=== PATIENT | female | born 1990 | race Caucasian/White ===

== ENCOUNTER 2021-09-04 15:59 | Emergency (ER) | payer OTHER ==
[2021-09-04 16:07] VITALS: BP 132/89; PULSE 105; TEMP 97.9; BMI 25.2
[2021-09-04 18:17] LABS: HCG,QUALITATIVE URINE Negative
[2021-09-04 18:18] LABS: EPI CELLS 17 /uL (0-25.1); HYALINE CASTS 0 /uL (0-3.1); PH,URINE 5.5 (5.0-8.0); URINE APPEARANCE CLEAR; URINE BACTERIA 229 /uL (0-1359); URINE BILIRUBIN NEGATIVE (NEGATIVE); URINE COLOR YELLOW; URINE GLUCOSE (UA) NEGATIVE (NEGATIVE); URINE KETONE NEGATIVE (NEGATIVE); URINE LEUK ESTERASE TRACE (NEGATIVE); URINE NITRITE NEGATIVE (NEGATIVE); URINE PROTEIN NEGATIVE (NEGATIVE); URINE RBC 21 /uL (0-23.9); URINE UROBILINOGEN 0.2 mg/dL (0.2-1.0); URINE WBC 12 /uL (0-25.8)
[2021-09-04] MEDS ORDERED: ONDANSETRON 4 MG TABLET PO ONE (19:58)
[2021-09-04] MEDS ORDERED: ACETAMINOPHEN 500 MG TABLET (FP) PO ONE (20:06)
[2021-09-04] MEDS ORDERED: ONDANSETRON *ODT* 4 MG TABLET ONE (20:55)
[2021-09-04] MEDS ORDERED: ACETAMINOPHEN 325 MG TABLET (FP) ONE (20:55)
== END 2021-09-04 21:08 | disposition home or self-care (01) ==
LOC: JER 15:59 → JERFT 15:59
DX: S09.90XA Unspecified injury of head, initial encounter (principal); M54.2 Cervicalgia; F07.81 Postconcussional syndrome; W01.0XXA Fall on same level from slipping, tripping and stumbling without subsequent striking against object, initial encounter
CPT/HCPCS: 70450-TC; 72125-TC; 81003; 84703; 99285-25

== ENCOUNTER 2024-01-01 17:35 | Emergency (ER) | payer OTHER ==
[2024-01-01 17:51] VITALS: BP 115/77; PULSE 88; RESP 18; TEMP 98; BMI 27.4
[2024-01-01 18:33] LABS: EPI CELLS 5 /uL (0-25.1); HCG,QUALITATIVE URINE Negative; HYALINE CASTS 0 /uL (0-3.1); PH,URINE 5.5 (5.0-8.0); URINE APPEARANCE CLEAR; URINE BACTERIA 46 /uL (0-1359); URINE BILIRUBIN NEGATIVE (NEGATIVE); URINE COLOR YELLOW; URINE GLUCOSE (UA) NEGATIVE (NEGATIVE); URINE KETONE TRACE (NEGATIVE); URINE LEUK ESTERASE NEGATIVE (NEGATIVE); URINE NITRITE NEGATIVE (NEGATIVE); URINE PROTEIN NEGATIVE (NEGATIVE); URINE RBC 14 /uL (0-23.9); URINE UROBILINOGEN 0.2 mg/dL (0.2-1.0); URINE WBC 1 /uL (0-25.8)
[2024-01-01 19:24] LABS: BASO % 0.6 % (0-2.0); HEMATOCRIT 41.1 % (32.4-45.2); HEMOGLOBIN 13.7 GM/dL (10.7-15.3); LYMPH % 22.4 % (8-40); MCHC 33.3 g/dl (32.0-36.0); MEAN PLT VOLUME 9.7 fl (7.5-11.1); MONO % 5.9 % (3.8-10.2); NEUT % 69.1 % (42.8-82.8); PLATELET COUNT 310 10^3/uL (134-434); RBC 4.57 M/mm3 (3.60-5.2); RDW 12.9 % (11.6-15.6); WHITE BLOOD COUNT 12.2 K/mm3 (4.0-10.0)
[2024-01-01 19:43] LABS: CHLORIDE 101 mmol/L (98-107); SODIUM 133 mmol/L (136-145)
[2024-01-01 19:45] LABS: CALCIUM 9.1 mg/dL (8.5-10.1)
[2024-01-01 19:46] LABS: ANION GAP 4 mmol/L (4-13); CO2 28 mmol/L (21-32); GLUCOSE,RANDOM 116 mg/dL (74-106)
[2024-01-01 19:49] LABS: CREATININE 0.7 mg/dL (0.55-1.3)
== END 2024-01-01 21:05 | disposition home or self-care (01) ==
LOC: JER 17:35
DX: R53.81 Other malaise (principal); N39.0 Urinary tract infection, site not specified; Z20.822 Contact with and (suspected) exposure to COVID-19
CPT/HCPCS: 0241U-QW; 36415; 80048; 81003; 82550; 82553; 84703; 85025; 87086; 93005; 93010; 99284-25